=== PATIENT | male | born 1935 | race African-American/Black ===

== ENCOUNTER 2022-01-28 20:43 | Inpatient (IN) | payer MEDICARE ==
[2022-01-28 21:34] LABS: Bilirubin Neg (Negative); Blood, Urine 25 (Negative); Clarity Slightly Cloudy (Clear); Glucose, Urine (Dipstick) Normal (Negative); Ketone, Urine Negative (Negative); Leukocyte 500 (Negative); Nitrite Negative (Negative); Protein, Urine (Dipstick) Negative (Neg-Trace); Urobilinogen Normal mg/dL (Less than 2)
[2022-01-28 21:43] LABS: #Eosinphils 0.1 10x3/uL (0.0-0.5); #Neutrophils 10.2 10x3/uL (1.5-8.4); %Basophils 0.2 % (0.0-2.0); %Monocytes 8.3 % (0.0-10.0); %Neutrophils 84.8 % (40.0-75.0); Hemoglobin 8.4 g/dL (13.5-17.5); Mean Corpuscular HGB CONC 32.1 g/dL (32.0-36.0); Mean Corpuscular Hemoglobin 28.3 pg (27.0-33.0); Mean Corpuscular Volume 88.2 fl (81.2-95.1); Mean Platelet Volume 10.6 fl (7.4-10.4); Platelet Count 205 10x3/uL (150-450); RBC Distribution Width 17.1 % (11.5-14.5); Red Blood Cell (RBC) Count 2.97 10x6/uL (4.32-5.72)
[2022-01-28 21:46] LABS: ALT (SGPT) Less than 6 U/L (8-55); AST (SGOT) 10 U/L (5-34); Albumin 2.7 g/dL (3.4-4.8); Alkaline Phosphatase 59 U/L (40-110); Anion Gap 17 mmol/L (10-20); BUN (Urea Nitrogen) 95 mg/dL (8.4-25.7); Bilirubin, Total 0.5 mg/dL (0.2-1.2); CK (CPK) 21 U/L (30-200); Calc. Creatinine Clearance 0 mL/min (70-130); Calcium 8.7 mg/dL (7.8-10.44); Carbon Dioxide 18 mmol/L (23-31); Chloride 120 mmol/L (98-107); Estimated GFR 17; Glucose 116 mg/dL (83-110); Potassium 4.3 mmol/L (3.5-5.1); Protein, Total 5.7 g/dL (5.8-8.1)
[2022-01-28 21:50] LABS: Sodium 151 mmol/L (136-145)
[2022-01-28 21:51] LABS: Squamous Epithelial 0-3 HPF (0-3); Transitional Epithelial 0-3 HPF (None Seen)
[2022-01-28 21:52] LABS: Bacteria/HPF None Seen HPF (None Seen); Mucous/LPF 1+ LPF (<2+)
[2022-01-28 22:04] LABS: CKMB 1.6 ng/mL (0-6.6)
[2022-01-28] MEDS ORDERED: Morphine 2 MG/ML VIAL SLOW IVP PRN (22:53)
[2022-01-28] MEDS ORDERED: hydrALAZINE 20 MG/ML VIAL SLOW IVP PRN (22:53)
[2022-01-28 23:06] LABS: Iron 22 ug/dL (65-175); Iron Binding Capacity, Total 110 mcg/dL (261-462)
[2022-01-28] MEDS ORDERED: Ondansetron PF 4 MG/2 ML Vial IVP PRN (23:06)
[2022-01-28] MEDS ORDERED: Acetaminophen 325 MG TAB PO PRN (23:06)
[2022-01-28] MEDS ORDERED: Bisacodyl 5 MG TAB PO PRN (23:06)
[2022-01-28] MEDS ORDERED: cefTRIAXone\\ROCEPHIN 1 GM VIAL ONE (23:08)
[2022-01-28] MEDS: cefTRIAXone\\ROCEPHIN 1 GM in Sodium Chloride 0.9% 100 ML IVPB SCH (23:09)
[2022-01-28] MEDS: Sodium Bicarbonate 75 MEQ in Dextrose 5% in Water 1,000 ML IV SCH (23:31)
[2022-01-29 04:24] LABS: Troponin I 0.051 ng/mL (< 0.028)
[2022-01-29 04:26] LABS: ALT (SGPT) Less than 6 U/L (8-55); AST (SGOT) 8 U/L (5-34); Albumin 2.6 g/dL (3.4-4.8); Alkaline Phosphatase 52 U/L (40-110); Anion Gap 16 mmol/L (10-20); BUN (Urea Nitrogen) 91 mg/dL (8.4-25.7); Bilirubin, Total 0.4 mg/dL (0.2-1.2); Calc. Creatinine Clearance 17 mL/min (70-130); Calcium 8.5 mg/dL (7.8-10.44); Carbon Dioxide 18 mmol/L (23-31); Chloride 119 mmol/L (98-107); Estimated GFR 19; Globulin 3.4 g/dL (2.4-3.5); Glucose 102 mg/dL (83-110); Potassium 4.2 mmol/L (3.5-5.1); Sodium 149 mmol/L (136-145)
[2022-01-29] MEDS ORDERED: Morphine 2 MG/ML VIAL ONE (06:14)
[2022-01-29 07:47] LABS: #Eosinphils 0.1 10x3/uL (0.0-0.5); #Monocytes 0.8 10x3/uL (0.0-1.1); #Neutrophils 9.4 10x3/uL (1.5-8.4); %Basophils 0.1 % (0.0-2.0); %Eosinophils 1.2 % (0.0-6.0); %Monocytes 7.7 % (0.0-10.0); %Neutrophils 85.3 % (40.0-75.0); Hemoglobin 7.7 g/dL (13.5-17.5); Mean Corpuscular HGB CONC 31.7 g/dL (32.0-36.0); Mean Corpuscular Hemoglobin 27.9 pg (27.0-33.0); Mean Platelet Volume 10.6 fl (7.4-10.4); Platelet Count 195 10x3/uL (150-450); RBC Distribution Width 17.2 % (11.5-14.5); Red Blood Cell (RBC) Count 2.76 10x6/uL (4.32-5.72)
[2022-01-29] MEDS ORDERED: Enoxaparin Sodium 30 MG/0.3 ML SYRINGE ONE (11:02)
[2022-01-29] MEDS: Enoxaparin Sodium 30 MG/0.3 ML SYRINGE SC SCH (11:08)
[2022-01-29] MEDS: Finasteride 5 MG TAB PO SCH (11:09)
[2022-01-29] MEDS: Aspirin 81 mg Enteric Coated Tablet PO SCH (11:10)
[2022-01-29] MEDS: traMADol HCl 50 MG TAB PO PRN (11:10)
[2022-01-29] MEDS: Doxazosin 2 MG TAB PO SCH ×2 (11:11→21:40)
[2022-01-29] MEDS ORDERED: FLU VACC QS2022-23(65YR UP)/PF 240 MCG/0.7 ML SYRINGE IM ONE (12:15)
[2022-01-29 20:29] LABS: Creatinine, Urine 69.55 mg/dL (63-166)
[2022-01-29] MEDS: Simvastatin 10 MG TAB PO SCH (21:40)
[2022-01-29] MEDS: cefTRIAXone\\ROCEPHIN 1 GM in Sodium Chloride 0.9% 100 ML IVPB SCH (23:34)
[2022-01-29] MEDS: Sodium Bicarbonate 75 MEQ in Dextrose 5% in Water 1,000 ML IV SCH (23:34)
[2022-01-30 05:20] LABS: ALT (SGPT) Less than 6 U/L (8-55); AST (SGOT) 12 U/L (5-34); Albumin 2.6 g/dL (3.4-4.8); Alkaline Phosphatase 53 U/L (40-110); Anion Gap 13 mmol/L (10-20); BUN (Urea Nitrogen) 75 mg/dL (8.4-25.7); Bilirubin, Total 0.5 mg/dL (0.2-1.2); Calc. Creatinine Clearance 20 mL/min (70-130); Carbon Dioxide 23 mmol/L (23-31); Chloride 118 mmol/L (98-107); Estimated GFR 24; Globulin 3.3 g/dL (2.4-3.5); Glucose 91 mg/dL (83-110); Potassium 3.9 mmol/L (3.5-5.1); Protein, Total 5.9 g/dL (5.8-8.1); Sodium 150 mmol/L (136-145)
[2022-01-30] MEDS ORDERED: Dextrose 5% in Water 1,000 ML IV SCH (06:45)
[2022-01-30 09:01] LABS: #Eosinphils 0.2 10x3/uL (0.0-0.5); #Monocytes 0.8 10x3/uL (0.0-1.1); #Neutrophils 8.4 10x3/uL (1.5-8.4); %Basophils 0.2 % (0.0-2.0); %Eosinophils 2.2 % (0.0-6.0); %Lymphocytes 6.3 % (18.0-47.0); %Monocytes 7.8 % (0.0-10.0); %Neutrophils 82.7 % (40.0-75.0); Hemoglobin 7.6 g/dL (13.5-17.5); Mean Corpuscular HGB CONC 31.9 g/dL (32.0-36.0); Mean Corpuscular Hemoglobin 28.1 pg (27.0-33.0); Mean Corpuscular Volume 88.1 fl (81.2-95.1); Mean Platelet Volume 10.6 fl (7.4-10.4); Platelet Count 193 10x3/uL (150-450); RBC Distribution Width 17.3 % (11.5-14.5); White Blood Cell (WBC) Count 10.1 10x3/uL (3.5-10.5)
[2022-01-30] MEDS: HYDROcodone/Acetaminophen 5/325 mg Tablet PO PRN ×2 (09:27→14:12)
[2022-01-30] MEDS: Aspirin 81 mg Enteric Coated Tablet PO SCH (09:30)
[2022-01-30] MEDS: Enoxaparin Sodium 30 MG/0.3 ML SYRINGE SC SCH (09:30)
[2022-01-30] MEDS: Finasteride 5 MG TAB PO SCH (09:30)
[2022-01-30] MEDS: Doxazosin 2 MG TAB PO SCH ×2 (09:30→21:20)
[2022-01-30 13:47] LABS: Albumin 2.4 g/dL (3.4-4.8); Anion Gap 12 mmol/L (10-20); BUN (Urea Nitrogen) 69 mg/dL (8.4-25.7); BUN/Creatinine Ratio 27.94; Calc. Creatinine Clearance 21 mL/min (70-130); Calcium 8.5 mg/dL (7.8-10.44); Carbon Dioxide 22 mmol/L (23-31); Chloride 117 mmol/L (98-107); Estimated GFR 25; Glucose 109 mg/dL (83-110); Magnesium 2.6 mg/dL (1.6-2.6); Phosphorus 3.4 mg/dL (2.3-4.7); Sodium 147 mmol/L (136-145)
[2022-01-30] MEDS: Dextrose 5% in Water 1,000 ML IV SCH (17:55)
[2022-01-30] MEDS: Iron, Sodium Ferric Gluconate 250 MG in Sodium Chloride 0.9% 250 ML 250 ML IVPB SCH (19:31)
[2022-01-30] MEDS: Simvastatin 10 MG TAB PO SCH (21:20)
[2022-01-30] MEDS: traMADol HCl 50 MG TAB PO PRN (21:22)
[2022-01-30] MEDS: cefTRIAXone\\ROCEPHIN 1 GM in Sodium Chloride 0.9% 100 ML IVPB SCH (22:43)
[2022-01-31] MEDS: Dextrose 5% in Water 1,000 ML IV SCH (02:11)
[2022-01-31 06:01] LABS: ALT (SGPT) Less than 6 U/L (8-55); AST (SGOT) 9 U/L (5-34); Albumin 2.3 g/dL (3.4-4.8); Alkaline Phosphatase 48 U/L (40-110); Anion Gap 11 mmol/L (10-20); BUN (Urea Nitrogen) 59 mg/dL (8.4-25.7); Bilirubin, Total 0.4 mg/dL (0.2-1.2); Calc. Creatinine Clearance 24 mL/min (70-130); Calcium 8.4 mg/dL (7.8-10.44); Carbon Dioxide 23 mmol/L (23-31); Chloride 115 mmol/L (98-107); Estimated GFR 29; Globulin 2.9 g/dL (2.4-3.5); Glucose 98 mg/dL (83-110); Potassium 3.8 mmol/L (3.5-5.1); Protein, Total 5.2 g/dL (5.8-8.1); Sodium 145 mmol/L (136-145)
[2022-01-31 08:33] LABS: #Eosinphils 0.2 10x3/uL (0.0-0.5); #Monocytes 0.8 10x3/uL (0.0-1.1); #Neutrophils 7.6 10x3/uL (1.5-8.4); %Basophils 0.2 % (0.0-2.0); %Eosinophils 2.6 % (0.0-6.0); %Lymphocytes 7.7 % (18.0-47.0); %Neutrophils 80.9 % (40.0-75.0); Hemoglobin 7.4 g/dL (13.5-17.5); Mean Corpuscular HGB CONC 32.3 g/dL (32.0-36.0); Mean Corpuscular Hemoglobin 28.4 pg (27.0-33.0); Mean Corpuscular Volume 87.7 fl (81.2-95.1); Mean Platelet Volume 11.1 fl (7.4-10.4); Platelet Count 191 10x3/uL (150-450); RBC Distribution Width 17.2 % (11.5-14.5); Red Blood Cell (RBC) Count 2.61 10x6/uL (4.32-5.72); White Blood Cell (WBC) Count 9.4 10x3/uL (3.5-10.5)
[2022-01-31] MEDS: Aspirin 81 mg Enteric Coated Tablet PO SCH (09:10)
[2022-01-31] MEDS: Enoxaparin Sodium 30 MG/0.3 ML SYRINGE SC SCH (09:10)
[2022-01-31] MEDS: Finasteride 5 MG TAB PO SCH (09:10)
[2022-01-31] MEDS: Doxazosin 2 MG TAB PO SCH ×2 (09:10→20:13)
[2022-01-31] MEDS: HYDROcodone/Acetaminophen 5/325 mg Tablet PO PRN (09:11)
[2022-01-31 10:16] VITALS: BMI 22.0
[2022-01-31] MEDS ORDERED: Megestrol Acetate 800 MG/20 ML UDCUP PO SCH (11:00)
[2022-01-31] MEDS ORDERED: Megestrol Acetate 400 MG/10 ML UDCUP PO SCH (11:15)
[2022-01-31 13:38] LABS: Anion Gap 13 mmol/L (10-20); BUN (Urea Nitrogen) 55 mg/dL (8.4-25.7); Calc. Creatinine Clearance 23 mL/min (70-130); Calcium 8.7 mg/dL (7.8-10.44); Carbon Dioxide 22 mmol/L (23-31); Chloride 113 mmol/L (98-107); Estimated GFR 30; Glucose 104 mg/dL (83-110); Potassium 3.8 mmol/L (3.5-5.1); Sodium 144 mmol/L (136-145)
[2022-01-31] MEDS: Polyethylene Glycol 3350 17 GM Packet PO PRN (16:41)
[2022-01-31] MEDS: Sodium Bicarbonate 50 MEQ in Dextrose 5% in Water 1,000 ML IV SCH (16:41)
[2022-01-31] MEDS: Iron, Sodium Ferric Gluconate 250 MG in Sodium Chloride 0.9% 250 ML 250 ML IVPB SCH (19:27)
[2022-01-31] MEDS: Simvastatin 10 MG TAB PO SCH (20:13)
[2022-01-31] MEDS: traMADol HCl 50 MG TAB PO PRN (20:18)
[2022-01-31] MEDS ORDERED: Sodium Chloride 0.9% 100 ML ONE (23:59)
[2022-01-31] MEDS ORDERED: cefTRIAXone\\ROCEPHIN 1 GM VIAL ONE (23:59)
[2022-02-01] MEDS: cefTRIAXone\\ROCEPHIN 1 GM in Sodium Chloride 0.9% 100 ML IVPB SCH (00:02)
[2022-02-01 05:28] LABS: #Eosinphils 0.2 10x3/uL (0.0-0.5); #Monocytes 0.8 10x3/uL (0.0-1.1); #Neutrophils 8.3 10x3/uL (1.5-8.4); %Basophils 0.1 % (0.0-2.0); %Eosinophils 2.1 % (0.0-6.0); %Lymphocytes 6.8 % (18.0-47.0); %Monocytes 7.5 % (0.0-10.0); %Neutrophils 82.3 % (40.0-75.0); Hemoglobin 6.8 g/dL (13.5-17.5); Mean Corpuscular HGB CONC 32.1 g/dL (32.0-36.0); Mean Corpuscular Hemoglobin 28.5 pg (27.0-33.0); Mean Corpuscular Volume 88.7 fl (81.2-95.1); Mean Platelet Volume 11.2 fl (7.4-10.4); Platelet Count 169 10x3/uL (150-450); RBC Distribution Width 17.2 % (11.5-14.5); Red Blood Cell (RBC) Count 2.39 10x6/uL (4.32-5.72); White Blood Cell (WBC) Count 10.1 10x3/uL (3.5-10.5)
[2022-02-01 05:47] LABS: Anion Gap 12 mmol/L (10-20); BUN (Urea Nitrogen) 49 mg/dL (8.4-25.7); Calc. Creatinine Clearance 26 mL/min (70-130); Calcium 8.3 mg/dL (7.8-10.44); Carbon Dioxide 23 mmol/L (23-31); Chloride 112 mmol/L (98-107); Estimated GFR 33; Glucose 94 mg/dL (83-110); Potassium 3.8 mmol/L (3.5-5.1); Sodium 143 mmol/L (136-145)
[2022-02-01] MEDS: Sodium Bicarbonate 50 MEQ in Dextrose 5% in Water 1,000 ML IV SCH (07:31)
[2022-02-01] MEDS ORDERED: EPOETIN ALFA-EPBX (ESRD) 10,000 UNIT/ML VIAL SC SCH (09:00)
[2022-02-01] MEDS: Megestrol Acetate 400 MG/10 ML UDCUP PO SCH (09:37)
[2022-02-01] MEDS: Polyethylene Glycol 3350 17 GM Packet PO PRN (09:38)
[2022-02-01] MEDS: Finasteride 5 MG TAB PO SCH (09:38)
[2022-02-01] MEDS: Aspirin 81 mg Enteric Coated Tablet PO SCH (09:38)
[2022-02-01] MEDS: Doxazosin 2 MG TAB PO SCH ×2 (09:38→22:34)
[2022-02-01] MEDS: HYDROcodone/Acetaminophen 5/325 mg Tablet PO PRN (11:24)
[2022-02-01 14:39] LABS: Hemoglobin 8.3 g/dL (13.5-17.5); Platelet Count 185 10x3/uL (150-450)
[2022-02-01] MEDS: Iron, Sodium Ferric Gluconate 250 MG in Sodium Chloride 0.9% 250 ML 250 ML IVPB SCH (19:18)
[2022-02-01] MEDS: Simvastatin 10 MG TAB PO SCH (22:34)
[2022-02-02 05:18] LABS: Hemoglobin 9.1 g/dL (13.5-17.5); Mean Corpuscular Volume 87.9 fl (81.2-95.1); Mean Platelet Volume 11.5 fl (7.4-10.4); Platelet Count 186 10x3/uL (150-450); RBC Distribution Width 16.4 % (11.5-14.5); Red Blood Cell (RBC) Count 3.14 10x6/uL (4.32-5.72); White Blood Cell (WBC) Count 12.1 10x3/uL (3.5-10.5)
[2022-02-02 07:41] LABS: Albumin 2.4 g/dL (3.4-4.8); Anion Gap 12 mmol/L (10-20); BUN (Urea Nitrogen) 41 mg/dL (8.4-25.7); BUN/Creatinine Ratio 23.98; Calc. Creatinine Clearance 29 mL/min (70-130); Calcium 8.9 mg/dL (7.8-10.44); Carbon Dioxide 22 mmol/L (23-31); Chloride 113 mmol/L (98-107); Estimated GFR 39; Glucose 84 mg/dL (83-110); Phosphorus 3.2 mg/dL (2.3-4.7); Potassium 4.1 mmol/L (3.5-5.1); Sodium 143 mmol/L (136-145)
[2022-02-02] MEDS: Finasteride 5 MG TAB PO SCH (10:38)
[2022-02-02] MEDS: Megestrol Acetate 400 MG/10 ML UDCUP PO SCH (10:38)
[2022-02-02] MEDS: Aspirin 81 mg Enteric Coated Tablet PO SCH (10:39)
[2022-02-02] MEDS: Doxazosin 2 MG TAB PO SCH (10:40)
[2022-02-02 12:09] VITALS: BP 138/62; TEMP 98.4
== END 2022-02-02 13:45 | DRG 682 ==
LOC: CSHERS 20:43 → INTOOBSV 23:02 → CSHERHOLD 23:02 → CSHTELE 01-29 09:00 → OBSVTOIN 01-30 14:05
PROVIDERS: ADMIT Internal Medicine; ATTEND Internal Medicine
PROC: 30233N1 Transfusion of Nonautologous Red Blood Cells into Peripheral Vein, Percutaneous Approach (ICD-10-PCS; principal; 2022-02-01)
DX: N17.9 Acute kidney failure, unspecified (principal); I21.A1 Myocardial infarction type 2; I50.22 Chronic systolic (congestive) heart failure; I13.0 Hypertensive heart and chronic kidney disease with heart failure and stage 1 through stage 4 chronic kidney disease, or unspecified chronic kidney disease; E44.0 Moderate protein-calorie malnutrition; D62 Acute posthemorrhagic anemia; E87.0 Hyperosmolality and hypernatremia; E87.20 Acidosis, unspecified; E87.1 Hypo-osmolality and hyponatremia; E86.0 Dehydration; E86.9 Volume depletion, unspecified; I25.10 Atherosclerotic heart disease of native coronary artery without angina pectoris; N40.1 Benign prostatic hyperplasia with lower urinary tract symptoms; N18.31 Chronic kidney disease, stage 3a; R33.8 Other retention of urine; D63.1 Anemia in chronic kidney disease; L89.159 Pressure ulcer of sacral region, unspecified stage; F03.90 Unspecified dementia, unspecified severity, without behavioral disturbance, psychotic disturbance, mood disturbance, and anxiety; Z20.822 Contact with and (suspected) exposure to COVID-19; Z98.890 Other specified postprocedural states; Z95.2 Presence of prosthetic heart valve; Z79.899 Other long term (current) drug therapy; Z79.82 Long term (current) use of aspirin; Z86.79 Personal history of other diseases of the circulatory system; Z68.22 Body mass index [BMI] 22.0-22.9, adult
CPT/HCPCS: 36415; 36430; 71045; 76770; 80048; 80053; 80069; 81003; 81015; 82550; 82553; 82570; 82728; 83540; 83550; 83735; 84300; 84443; 84484; 84540; 85025; 85027; 86850; 86900; 86901; 87040; 87086; 93005; 96360; 96372; 97139; G0378; J0696; J1650; J2270; J2916; J3490; J7050; J7070; P9016; Q5105; U0003; U0005

== ENCOUNTER 2022-03-05 11:46 | Inpatient (IN) | payer MEDICARE ==
[2022-03-05 12:46] LABS: #Eosinphils 0.2 10x3/uL (0.0-0.5); #Monocytes 0.7 10x3/uL (0.0-1.1); #Neutrophils 6.4 10x3/uL (1.5-8.4); %Basophils 0.4 % (0.0-2.0); %Eosinophils 2.8 % (0.0-6.0); %Lymphocytes 9.9 % (18.0-47.0); %Monocytes 8.2 % (0.0-10.0); %Neutrophils 77.7 % (40.0-75.0); Hemoglobin 7.5 g/dL (13.5-17.5); Mean Corpuscular HGB CONC 32.6 g/dL (32.0-36.0); Mean Platelet Volume 11.4 fl (7.4-10.4); Platelet Count 146 10x3/uL (150-450); RBC Distribution Width 23.4 % (11.5-14.5); Red Blood Cell (RBC) Count 2.42 10x6/uL (4.32-5.72); White Blood Cell (WBC) Count 8.2 10x3/uL (3.5-10.5)
[2022-03-05 13:10] LABS: ALT (SGPT) 14 U/L (8-55); AST (SGOT) 15 U/L (5-34); Albumin 2.6 g/dL (3.4-4.8); Alkaline Phosphatase 38 U/L (40-110); Anion Gap 13 mmol/L (10-20); BUN (Urea Nitrogen) 75 mg/dL (8.4-25.7); Bilirubin, Total 0.4 mg/dL (0.2-1.2); Calc. Creatinine Clearance 0 mL/min (70-130); Calcium 8.4 mg/dL (7.8-10.44); Carbon Dioxide 20 mmol/L (23-31); Chloride 111 mmol/L (98-107); Estimated GFR 24; Globulin 2.5 g/dL (2.4-3.5); Glucose 94 mg/dL (83-110); Potassium 4.7 mmol/L (3.5-5.1); Protein, Total 5.1 g/dL (5.8-8.1); Sodium 139 mmol/L (136-145)
[2022-03-05 13:22] LABS: Anisocytosis MODERATE=16-30 cells (100X) (0-5/hpf)
[2022-03-05 14:09] LABS: CKMB 3.5 ng/mL (0-6.6)
[2022-03-05] MEDS ORDERED: Calcium Carbonate 500 MG ChewTAB PO PRN (14:21)
[2022-03-05] MEDS ORDERED: traMADol HCl 50 MG TAB PO PRN (14:21)
[2022-03-05] MEDS ORDERED: Milk Of Magnesia 30 ML UDCUP PO PRN (14:21)
[2022-03-05] MEDS ORDERED: Acetaminophen 500 MG TAB ONE ×2 (15:21→20:34)
[2022-03-05] MEDS ORDERED: hydrALAZINE 25 MG TAB ONE (15:21)
[2022-03-05] MEDS ORDERED: GUAIFENESIN SF SOLN 200 MG/10 ML UDCUP PO PRN (18:33)
[2022-03-05] MEDS ORDERED: Ascorbic Acid 500 mg Chewable Tablet ONE (20:36)
[2022-03-05] MEDS: Acetaminophen 500 MG TAB PO SCH (20:51)
[2022-03-05] MEDS: Doxazosin 2 MG TAB PO SCH (20:52)
[2022-03-05] MEDS: Ascorbic Acid 500 mg Chewable Tablet PO SCH (20:52)
[2022-03-05] MEDS: Furosemide 20 MG TAB PO SCH (20:52)
[2022-03-05] MEDS: Ferrous Sulfate 325 MG TAB PO SCH (20:52)
[2022-03-05] MEDS: hydrALAZINE 25 MG TAB PO SCH (20:53)
[2022-03-05] MEDS ORDERED: Simvastatin 10 MG TAB PO SCH (21:00)
[2022-03-05 21:59] LABS: SARS-CoV-2 NAA Rapid Test Not Detected (NotDetected)
[2022-03-05 23:11] VITALS: TEMP 98
[2022-03-06] MEDS ORDERED: Acetaminophen 500 MG TAB ONE (08:13)
[2022-03-06] MEDS ORDERED: Aspirin Chewable 81 MG TAB ONE (08:13)
[2022-03-06] MEDS ORDERED: Potassium Chloride 20 MEQ TAB ONE (08:14)
[2022-03-06] MEDS ORDERED: Furosemide 40 MG TAB ONE (08:14)
[2022-03-06] MEDS ORDERED: Ascorbic Acid 500 mg Chewable Tablet ONE (08:16)
[2022-03-06] MEDS ORDERED: Tamsulosin HCl 0.4 MG CAP ONE (08:16)
[2022-03-06] MEDS ORDERED: Cholecalciferol 1,000 UNITS (25 MCG) TAB ONE ×2 (08:17)
[2022-03-06] MEDS: Doxazosin 2 MG TAB PO SCH (08:49)
[2022-03-06] MEDS: Ascorbic Acid 500 mg Chewable Tablet PO SCH (08:49)
[2022-03-06] MEDS: Acetaminophen 500 MG TAB PO SCH (08:49)
[2022-03-06] MEDS: Furosemide 20 MG TAB PO SCH (08:50)
[2022-03-06] MEDS: hydrALAZINE 25 MG TAB PO SCH (08:50)
[2022-03-06] MEDS: Ferrous Sulfate 325 MG TAB PO SCH (08:50)
[2022-03-06 08:52] VITALS: BP 111/51
[2022-03-06 08:58] LABS: #Eosinphils 0.2 10x3/uL (0.0-0.5); #Monocytes 0.7 10x3/uL (0.0-1.1); #Neutrophils 5.6 10x3/uL (1.5-8.4); %Basophils 0.3 % (0.0-2.0); %Eosinophils 2.8 % (0.0-6.0); %Monocytes 9.3 % (0.0-10.0); %Neutrophils 77.8 % (40.0-75.0); Hemoglobin 7.4 g/dL (13.5-17.5); Mean Corpuscular HGB CONC 32.5 g/dL (32.0-36.0); Mean Corpuscular Hemoglobin 30.7 pg (27.0-33.0); Mean Corpuscular Volume 94.6 fl (81.2-95.1); Mean Platelet Volume 10.9 fl (7.4-10.4); Platelet Count 146 10x3/uL (150-450); RBC Distribution Width 23.3 % (11.5-14.5); Red Blood Cell (RBC) Count 2.41 10x6/uL (4.32-5.72); White Blood Cell (WBC) Count 7.2 10x3/uL (3.5-10.5)
[2022-03-06] MEDS ORDERED: Aspirin 81 mg Enteric Coated Tablet PO SCH (09:00)
[2022-03-06] MEDS ORDERED: Finasteride 5 MG TAB PO SCH (09:00)
[2022-03-06] MEDS ORDERED: Tamsulosin HCl 0.4 MG CAP PO SCH (09:00)
[2022-03-06] MEDS ORDERED: Cholecalciferol 1,000 UNITS (25 MCG) TAB PO SCH (09:00)
[2022-03-06] MEDS ORDERED: Potassium Chloride 20 MEQ TAB PO SCH (09:00)
[2022-03-06 09:11] LABS: Anion Gap 12 mmol/L (10-20); BUN (Urea Nitrogen) 70 mg/dL (8.4-25.7); Calc. Creatinine Clearance 0 mL/min (70-130); Calcium 8.2 mg/dL (7.8-10.44); Carbon Dioxide 21 mmol/L (23-31); Chloride 112 mmol/L (98-107); Estimated GFR 28; Glucose 79 mg/dL (83-110); Potassium 4.2 mmol/L (3.5-5.1); Sodium 141 mmol/L (136-145)
[2022-03-06 09:22] LABS: Troponin I 0.243 ng/mL (< 0.028)
== END 2022-03-06 14:58 | DRG 292 ==
LOC: CSHERS 11:46 → UNDOADMIN 18:30 → CSHERHOLD 18:30
PROVIDERS: ADMIT Family Medicine; ATTEND Nurse Practitioner Family
DX: I13.0 Hypertensive heart and chronic kidney disease with heart failure and stage 1 through stage 4 chronic kidney disease, or unspecified chronic kidney disease (principal); I50.42 Chronic combined systolic (congestive) and diastolic (congestive) heart failure; N18.4 Chronic kidney disease, stage 4 (severe); K21.9 Gastro-esophageal reflux disease without esophagitis; Z20.822 Contact with and (suspected) exposure to COVID-19; D63.1 Anemia in chronic kidney disease; Z60.2 Problems related to living alone; I25.10 Atherosclerotic heart disease of native coronary artery without angina pectoris; F03.90 Unspecified dementia, unspecified severity, without behavioral disturbance, psychotic disturbance, mood disturbance, and anxiety; L89.899 Pressure ulcer of other site, unspecified stage; I34.0 Nonrheumatic mitral (valve) insufficiency; M19.90 Unspecified osteoarthritis, unspecified site; I25.5 Ischemic cardiomyopathy; E11.22 Type 2 diabetes mellitus with diabetic chronic kidney disease; E11.51 Type 2 diabetes mellitus with diabetic peripheral angiopathy without gangrene; N40.0 Benign prostatic hyperplasia without lower urinary tract symptoms; E66.9 Obesity, unspecified; Z87.891 Personal history of nicotine dependence; Z95.2 Presence of prosthetic heart valve; Z79.82 Long term (current) use of aspirin; Z79.899 Other long term (current) drug therapy; Z95.5 Presence of coronary angioplasty implant and graft; Z82.49 Family history of ischemic heart disease and other diseases of the circulatory system
CPT/HCPCS: 36415; 80048; 82553; 84484; 85025; 93005; 93010; J1650; U0002

== ENCOUNTER 2022-03-18 19:01 | Emergency (ER) | payer MEDICARE ==
[2022-03-18 21:07] LABS: Bilirubin Neg (Negative); Blood, Urine 250 (Negative); Clarity Bloody (Clear); Glucose, Urine (Dipstick) Normal (Negative); Ketone, Urine Negative (Negative); Leukocyte 500 (Negative); Nitrite Positive (Negative); Protein, Urine (Dipstick) 100 mg/dl (Neg-Trace)
[2022-03-18 21:21] LABS: RBC/HPF Greater than 50 HPF (0-3); WBC/HPF 21-50 HPF (0-3)
[2022-03-18 21:22] LABS: Bacteria/HPF 2+ HPF (None Seen); Squamous Epithelial 0-3 HPF (0-3)
[2022-03-18] MEDS ORDERED: Cephalexin 250 MG CAP ONE (22:23)
== END 2022-03-19 01:20 ==
LOC: CSHERS 19:01
DX: N30.01 Acute cystitis with hematuria (principal); Z96.0 Presence of urogenital implants; I13.0 Hypertensive heart and chronic kidney disease with heart failure and stage 1 through stage 4 chronic kidney disease, or unspecified chronic kidney disease; N18.9 Chronic kidney disease, unspecified; E78.5 Hyperlipidemia, unspecified; K21.9 Gastro-esophageal reflux disease without esophagitis; Z79.899 Other long term (current) drug therapy; Z79.82 Long term (current) use of aspirin
CPT/HCPCS: 51701; 81003; 81015; 87077; 87086

== ENCOUNTER 2022-04-12 12:30 | Outpatient (CLI) | payer MEDICARE | END 2022-04-12 12:31 | disposition home or self-care (01) | LOC: CSHWCC 12:30 | PROVIDERS: ATTEND Nurse Practitioner Family | DX: L89.893 Pressure ulcer of other site, stage 3 (principal); L89.891 Pressure ulcer of other site, stage 1; R60.0 Localized edema | CPT/HCPCS: 97139; G0463; 99205 ==

== ENCOUNTER 2022-04-16 15:30 | Inpatient (IN) | payer MEDICARE ==
[2022-04-16 16:06] LABS: #Monocytes 0.4 10x3/uL (0.0-1.1); #Neutrophils 5.2 10x3/uL (1.5-8.4); %Basophils 0.2 % (0.0-2.0); %Eosinophils 0.2 % (0.0-6.0); %Lymphocytes 3.1 % (18.0-47.0); %Monocytes 6.5 % (0.0-10.0); %Neutrophils 89.8 % (40.0-75.0); Hemoglobin 6.4 g/dL (13.5-17.5); Mean Corpuscular HGB CONC 31.1 g/dL (32.0-36.0); Mean Corpuscular Hemoglobin 31.4 pg (27.0-33.0); Mean Platelet Volume 12.6 fl (7.4-10.4); Platelet Count 94 10x3/uL (150-450); RBC Distribution Width 18.7 % (11.5-14.5); Red Blood Cell (RBC) Count 2.04 10x6/uL (4.32-5.72); White Blood Cell (WBC) Count 5.8 10x3/uL (3.5-10.5)
[2022-04-16 16:11] LABS: ALT (SGPT) 11 U/L (8-55); AST (SGOT) 18 U/L (5-34); Albumin 2.8 g/dL (3.4-4.8); Alkaline Phosphatase 55 U/L (40-110); Anion Gap 16 mmol/L (10-20); BUN (Urea Nitrogen) 104 mg/dL (8.4-25.7); Bilirubin, Total 0.4 mg/dL (0.2-1.2); Calc. Creatinine Clearance 0 mL/min (70-130); Calcium 8.7 mg/dL (7.8-10.44); Carbon Dioxide 15 mmol/L (23-31); Chloride 116 mmol/L (98-107); Estimated GFR 20; Globulin 2.9 g/dL (2.4-3.5); Glucose 104 mg/dL (83-110); Lipase 346 U/L (8-78); Potassium 5.3 mmol/L (3.5-5.1); Protein, Total 5.7 g/dL (5.8-8.1); Sodium 142 mmol/L (136-145)
[2022-04-16 16:14] LABS: INR-International Normal Ratio 1.2; PTT 35.9 sec (22.0-33.0); Prothrombin Time 12.8 sec (9.5-12.1)
[2022-04-16 16:31] LABS: Anisocytosis MODERATE=16-30 cells (100X) (0-5/hpf); Elliptocytes SLIGHT = 2-5 cells (100X) (0-1/hpf); Hypochromia SLIGHT = 6-15 cells (100X) (0-5/hpf); Macrocytosis MODERATE=16-30 cells (100X) (0-5/hpf); Microcytosis SLIGHT = 6-15 cells (100X) (0-5/hpf); Ovalocytes SLIGHT = 2-5 cells (100X) (0-1/hpf); Poikilocytosis SLIGHT = 6-15 cells (100X) (0-5/hpf)
[2022-04-16 16:32] LABS: Burr Cells SLIGHT = 2-5 cells (100X) (0-1/hpf); CKMB 9.9 ng/mL (0-6.6); Crenated RBC SLIGHT = 1-5 cells (100X) (None Seen); Polychromasia SLIGHT = 2-3 cells (100X) (0-2/hpf)
[2022-04-16 16:34] LABS: Large Platelets MODERATE
[2022-04-16 16:35] LABS: Platelet Clumps SLIGHT; Platelet Morphology Comment Appears Decreased
[2022-04-16 16:37] LABS: Helmet Cells SLIGHT = 2-5 cells (100X) (0-1/hpf)
[2022-04-16 16:38] LABS: Target Cells SLIGHT = 2-5 cells (100X) (0-1/hpf)
[2022-04-16 16:55] LABS: Bilirubin Neg (Negative); Blood, Urine 50 (Negative); Clarity Cloudy (Clear); Glucose, Urine (Dipstick) Normal (Negative); Ketone, Urine 5 mg/dL (Negative); Leukocyte 100 (Negative); Nitrite Negative (Negative); Protein, Urine (Dipstick) 100 mg/dl (Neg-Trace); Urobilinogen Normal mg/dL (Less than 2)
[2022-04-16 17:00] LABS: #Monocytes 0.4 10x3/uL (0.0-1.1); #Neutrophils 5.4 10x3/uL (1.5-8.4); %Eosinophils 0.2 % (0.0-6.0); %Lymphocytes 3.6 % (18.0-47.0); %Monocytes 6.4 % (0.0-10.0); %Neutrophils 89.3 % (40.0-75.0); Hemoglobin 6.5 g/dL (13.5-17.5); Mean Corpuscular HGB CONC 30.2 g/dL (32.0-36.0); Mean Corpuscular Hemoglobin 31.1 pg (27.0-33.0); Mean Corpuscular Volume 102.9 fl (81.2-95.1); Mean Platelet Volume 11.7 fl (7.4-10.4); Platelet Count 94 10x3/uL (150-450); Red Blood Cell (RBC) Count 2.09 10x6/uL (4.32-5.72); White Blood Cell (WBC) Count 6.1 10x3/uL (3.5-10.5)
[2022-04-16 17:18] LABS: WBC/HPF 0-3 HPF (0-3)
[2022-04-16 17:19] LABS: Bacteria/HPF None Seen HPF (None Seen); Squamous Epithelial 0-3 HPF (0-3)
[2022-04-16 18:03] LABS: SARS-CoV-2 NAA Rapid Test Not Detected (NotDetected)
[2022-04-16] MEDS ORDERED: Cefepime 2 GM VIAL ONE (18:10)
[2022-04-16] MEDS ORDERED: DOPamine 400 MG/D5W 250 ML 250 ML ONE (18:49)
[2022-04-16] MEDS ORDERED: Cosyntropin 250 MCG VIAL SLOW IVP SCH (19:00)
[2022-04-16] MEDS ORDERED: Sodium Chloride 0.9% 1,000 ML IV SCH (19:15)
[2022-04-16 19:30] LABS: Lactic Acid 2.1 mmol/L (0.5-2.2)
[2022-04-16] MEDS: Pantoprazole 80 MG in Sodium Chloride 0.9% 100 ML IVPB SCH (19:40)
[2022-04-16] MEDS: DOPamine 400 MG/D5W 250 ML 250 ML IVPB SCH (19:45)
[2022-04-16 19:54] LABS: Free T4 (Free Thyroxine) 0.95 ng/dL (0.70-1.48); Thyroid Stimulating Hormone 4.8342 uIU/mL (0.35-4.94)
[2022-04-16] MEDS ORDERED: VANCOMYCIN 1.25 GM/250 ML BAG 1.25 GM in Premix Bag 1 BAG IVPB SCH (20:00)
[2022-04-16] MEDS ORDERED: HOLD VANCOMYCIN FOR LEVEL >20 IVP SCH (20:00)
[2022-04-16] MEDS ORDERED: Vancomycin Dose by Levels Sliding Scale (Wt 71-99) FS SCH (20:00)
[2022-04-16] MEDS ORDERED: Vancomycin 1 GM in Premix Bag 1 BAG IVPB SCH (21:00)
[2022-04-16] MEDS ORDERED: FLU VACC QS2022-23(65YR UP)/PF 240 MCG/0.7 ML SYRINGE IM ONE (21:15)
[2022-04-16] MEDS ORDERED: Furosemide 40 MG/4 ML VIAL SLOW IVP SCH (22:30)
[2022-04-17 04:05] LABS: #Monocytes 0.4 10x3/uL (0.0-1.1); #Neutrophils 7.5 10x3/uL (1.5-8.4); %Eosinophils 0.1 % (0.0-6.0); %Lymphocytes 1.4 % (18.0-47.0); %Monocytes 4.5 % (0.0-10.0); %Neutrophils 93.4 % (40.0-75.0); Hemoglobin 8.7 g/dL (13.5-17.5); Mean Corpuscular HGB CONC 33.1 g/dL (32.0-36.0); Mean Corpuscular Hemoglobin 31.2 pg (27.0-33.0); Mean Corpuscular Volume 94.3 fl (81.2-95.1); Mean Platelet Volume 12.1 fl (7.4-10.4); Platelet Count 113 10x3/uL (150-450); RBC Distribution Width 19.5 % (11.5-14.5); Red Blood Cell (RBC) Count 2.79 10x6/uL (4.32-5.72)
[2022-04-17 04:15] LABS: ALT (SGPT) 11 U/L (8-55); AST (SGOT) 26 U/L (5-34); Alkaline Phosphatase 54 U/L (40-110); Anion Gap 22 mmol/L (10-20); BUN (Urea Nitrogen) 104 mg/dL (8.4-25.7); Bilirubin, Total 0.5 mg/dL (0.2-1.2); Calc. Creatinine Clearance 21 mL/min (70-130); Calcium 8.9 mg/dL (7.8-10.44); Carbon Dioxide 10 mmol/L (23-31); Chloride 118 mmol/L (98-107); Estimated GFR 20; Globulin 3.1 g/dL (2.4-3.5); Glucose 57 mg/dL (83-110); Lipase 398 U/L (8-78); Protein, Total 6.1 g/dL (5.8-8.1); Sodium 144 mmol/L (136-145)
[2022-04-17 04:22] LABS: Potassium 6.1 mmol/L (3.5-5.1)
[2022-04-17] MEDS ORDERED: Insulin Regular 300 UNITS/3 ML VIAL IVP SCH (04:30)
[2022-04-17] MEDS ORDERED: Dextrose 50% Abboject 50 ML SYRINGE SLOW IVP SCH ×3 (04:30→10:15)
[2022-04-17] MEDS ORDERED: Dextrose 5 % And 0.9 % NaCl 1,000 ML IV SCH (04:30)
[2022-04-17] MEDS ORDERED: Sodium Bicarb 50 MEQ/50 ML VIAL IVP SCH ×2 (04:30→06:30)
[2022-04-17] MEDS ORDERED: LOKELMA 10 GM PACKET PO SCH (04:30)
[2022-04-17] MEDS ORDERED: Sodium Bicarbonate 150 MEQ in Dextrose 5% in Water 1,000 ML IV SCH ×2 (04:45→08:30)
[2022-04-17] MEDS: Calcium Gluc 4.6 MEQ/10 ML (100 MG/ML) SLOW IVP SCH ×2 (05:16→06:46)
[2022-04-17] MEDS: Pantoprazole 80 MG in Sodium Chloride 0.9% 100 ML IVPB SCH (05:23)
[2022-04-17] MEDS ORDERED: Dextrose 50% Abboject 50 ML SYRINGE ONE (07:05)
[2022-04-17] MEDS ORDERED: Hydrocortisone Sod Succ/PF 100 mg/2 ml Vial ONE (07:07)
[2022-04-17] MEDS ORDERED: Hydrocortisone Sod Succ/PF 100 mg/2 ml Vial IVP SCH (07:15)
[2022-04-17] MEDS ORDERED: Calcium Gluc 4.6 MEQ/10 ML (100 MG/ML) SLOW IVP SCH (07:15)
[2022-04-17] MEDS: DOPamine 400 MG/D5W 250 ML 250 ML IVPB SCH (08:28)
[2022-04-17 09:49] LABS: Anion Gap 17 mmol/L (10-20); BUN (Urea Nitrogen) 99 mg/dL (8.4-25.7); Calc. Creatinine Clearance 21 mL/min (70-130); Calcium 8.9 mg/dL (7.8-10.44); Carbon Dioxide 13 mmol/L (23-31); Chloride 119 mmol/L (98-107); Estimated GFR 20; Potassium 4.4 mmol/L (3.5-5.1); Sodium 145 mmol/L (136-145)
[2022-04-17 09:51] LABS: Hemoglobin 8.2 g/dL (13.5-17.5)
[2022-04-17 09:54] LABS: Glucose 39 mg/dL (83-110)
[2022-04-17 10:40] VITALS: BMI 26.4
[2022-04-17 10:41] LABS: Potassium 4.5 mmol/L (3.5-5.1)
[2022-04-17] MEDS ORDERED: Albumin 25% 25 GM/100 ML BOT IVPB SCH (13:00)
[2022-04-17] MEDS ORDERED: Cefepime 1 GM in Sodium Chloride 0.9% 100 ML IVPB SCH (18:00)
== END 2022-04-17 15:25 | disposition hospice, inpatient (51) | DRG 871 ==
LOC: CSHERS 15:30 → CSHIMCU 18:17
PROVIDERS: ADMIT Internal Medicine; ATTEND Internal Medicine
PROC: 30233N1 Transfusion of Nonautologous Red Blood Cells into Peripheral Vein, Percutaneous Approach (ICD-10-PCS; principal; 2022-04-16)
PROC: 3E03329 Introduction of Other Anti-infective into Peripheral Vein, Percutaneous Approach (ICD-10-PCS; 2022-04-16)
PROC: 30233J1 Transfusion of Nonautologous Serum Albumin into Peripheral Vein, Percutaneous Approach (ICD-10-PCS; 2022-04-17)
DX: A41.9 Sepsis, unspecified organism (principal); G93.41 Metabolic encephalopathy; I50.43 Acute on chronic combined systolic (congestive) and diastolic (congestive) heart failure; J18.9 Pneumonia, unspecified organism; K85.90 Acute pancreatitis without necrosis or infection, unspecified; R57.8 Other shock; N18.4 Chronic kidney disease, stage 4 (severe); Z66 Do not resuscitate; Z51.5 Encounter for palliative care; N17.9 Acute kidney failure, unspecified; I42.9 Cardiomyopathy, unspecified; K81.0 Acute cholecystitis; N30.00 Acute cystitis without hematuria; E87.20 Acidosis, unspecified; D62 Acute posthemorrhagic anemia; E46 Unspecified protein-calorie malnutrition; K92.2 Gastrointestinal hemorrhage, unspecified; K21.9 Gastro-esophageal reflux disease without esophagitis; I25.10 Atherosclerotic heart disease of native coronary artery without angina pectoris; Z20.822 Contact with and (suspected) exposure to COVID-19; D63.1 Anemia in chronic kidney disease; L89.600 Pressure ulcer of unspecified heel, unstageable; F03.90 Unspecified dementia, unspecified severity, without behavioral disturbance, psychotic disturbance, mood disturbance, and anxiety; R68.0 Hypothermia, not associated with low environmental temperature; E78.5 Hyperlipidemia, unspecified; N40.0 Benign prostatic hyperplasia without lower urinary tract symptoms; E87.5 Hyperkalemia; E88.09 Other disorders of plasma-protein metabolism, not elsewhere classified; Z79.82 Long term (current) use of aspirin; Z79.899 Other long term (current) drug therapy; Z98.890 Other specified postprocedural states; Z95.1 Presence of aortocoronary bypass graft; Z68.26 Body mass index [BMI] 26.0-26.9, adult
CPT/HCPCS: 36415; 36416; 36430; 71045; 71250; 74177; 80053; 80400; 81003; 81015; 82274; 82553; 83605; 83690; 83880; 84439; 84443; 84484; 85025; 85610; 85730; 86850; 86900; 86901; 87040; 87086; 93005; 93010; 94640; 94760; 96365; 97139; C9113; J0610; J0692; J0834; J1265; J1720; J1815; J1940; J3370; J3490; J7070; J7611; J7999; P9016

== ENCOUNTER 2022-04-17 15:25 | Inpatient (IN) | payer MEDICARE, OTHER ==
[2022-04-17] MEDS ORDERED: Lorazepam 2 MG/ML VIAL SLOW IVP PRN ×3 (15:52→16:00)
[2022-04-17] MEDS ORDERED: Morphine 4 MG/ML VIAL SLOW IVP PRN ×2 (15:56→16:03)
[2022-04-17] MEDS ORDERED: Ondansetron PF 4 MG/2 ML Vial IVP PRN (16:00)
[2022-04-17] MEDS ORDERED: Acetaminophen 650 MG Suppository PR PRN (16:00)
[2022-04-17] MEDS ORDERED: Scopolamine 1.5 mg/72 hour Patch TOP PRN (16:00)
[2022-04-17] MEDS ORDERED: Bisacodyl 10 MG SUPP PR PRN (16:06)
[2022-04-17 17:08] VITALS: BMI 26.4
[2022-04-17] MEDS: Morphine 4 MG/ML VIAL SLOW IVP SCH (18:31)
[2022-04-17] MEDS: Lorazepam 2 MG/ML VIAL SLOW IVP SCH ×3 (18:33→22:11)
[2022-04-18] MEDS: Morphine 4 MG/ML VIAL SLOW IVP SCH ×3 (01:25→17:37)
[2022-04-18] MEDS: Lorazepam 2 MG/ML VIAL SLOW IVP SCH ×12 (02:00→21:27)
[2022-04-18 08:38] VITALS: TEMP 97.4
[2022-04-19] MEDS: Lorazepam 2 MG/ML VIAL SLOW IVP SCH ×7 (00:29→14:38)
[2022-04-19 01:04] VITALS: BP 75/48
[2022-04-19] MEDS: Morphine 4 MG/ML VIAL SLOW IVP SCH ×2 (01:30→11:26)
== END 2022-04-19 13:30 | disposition expired | DRG 951 ==
LOC: CSHIMCU 15:25 → CSHTELE 04-18 10:58
PROVIDERS: ADMIT Family Medicine; ATTEND Family Medicine
DX: Z51.5 Encounter for palliative care (principal); A41.9 Sepsis, unspecified organism; J18.9 Pneumonia, unspecified organism; I50.43 Acute on chronic combined systolic (congestive) and diastolic (congestive) heart failure; N17.9 Acute kidney failure, unspecified; K92.2 Gastrointestinal hemorrhage, unspecified; N18.4 Chronic kidney disease, stage 4 (severe); R68.0 Hypothermia, not associated with low environmental temperature; L89.609 Pressure ulcer of unspecified heel, unspecified stage; E87.5 Hyperkalemia; K21.9 Gastro-esophageal reflux disease without esophagitis; I25.10 Atherosclerotic heart disease of native coronary artery without angina pectoris; D63.1 Anemia in chronic kidney disease; Z79.82 Long term (current) use of aspirin; Z79.899 Other long term (current) drug therapy
CPT/HCPCS: 36416; J2060; J2270